=== PATIENT | female | born 1960 | race Caucasian/White ===

== ENCOUNTER 2020-09-02 13:03 | Emergency (ER) | payer MEDICAID ==
[~2020-09-02] VITALS: Ht 157.5 cm; Wt 87.1 kg
[~2020-09-02 13:03] MED LIST: AMLO5TAB PO; MECL-303 PO
[2020-09-02 13:13] VITALS: BP 146/79
[2020-09-02] MEDS ORDERED: FLUO10CA21 PO (13:18)
[2020-09-02] MEDS ORDERED: METO50TE2 PO (13:18)
[2020-09-02] MEDS ORDERED: ORE25 PO (13:18)
[2020-09-02] MEDS ORDERED: LISI-420 PO (13:18)
[2020-09-02] MEDS ORDERED: ATOR20TA PO (13:18)
--- NOTE | 2020-09-02 13:25 | NUR ---
PATIENT PRESENTS TO ED WITH ABD PAIN X2W . PT STATES THAT SHE WENT TO HER PCP AND WAS PRESCRIBED ATX BUT WAS UNABLE TO FILL THE RX. N/V/D X2W; SKIN IS PINK/WARM/DRY; AAOX4 WITH EVEN AND STEADY GAIT; LUNGS CLEAR BL; HR EVEN AND REGULAR; PT DENIES ANY FEVER, CP, SOB, OR COUGH AT THIS TIME; PATIENT STATES PAIN OF 8/10 AT THIS TIME; VSS; PATIENT POSITIONED FOR COMFORT; HOB ELEVATED; BEDRAILS UP X2; BED DOWN. ER MD MADE AWARE OF PT STATUS.
[2020-09-02] MEDS ORDERED: MORPHINE SULFATE 2 MG/ML SYR IVP ONE (14:10)
[2020-09-02] MEDS ORDERED: NACL 0.9% 1,000 ML IV ONE (14:10)
[2020-09-02] MEDS ORDERED: FAMOTIDINE 20 MG/2 ML VIAL IVP STA (14:10)
[2020-09-02] MEDS ORDERED: ALUMINUM HYD/MAG/SIMETHICONE 30 ML UDC PO STA (14:10)
--- NOTE | 2020-09-02 14:30 | NUR ---
1 LITER NS ORDERED
[2020-09-02 14:37] LABS: BASOPHILS % (AUTO) 0.4 % (0.0-2.0); EOSINOPHILS % (AUTO) 0.1 % (0.0-4.0); HEMATOCRIT 41.7 % (36-48); HEMOGLOBIN 14.6 g/dL (12.0-16.0); LYMPHOCYTES # (AUTO) 1.8 K/uL (2.5-16.5); LYMPHOCYTES % (AUTO) 16.7 % (20.5-51.1); MEAN CORPUSCULAR HEMOGLOBIN 31 pg (27-31); MEAN CORPUSCULAR HGB CONC 35 g/dL (33-37); MONOCYTES # (AUTO) 0.6 K/uL (0.8-1.0); MONOCYTES % (AUTO) 5.6 % (1.7-9.3); NEUTROPHILS # (AUTO) 8.1 K/uL (1.8-7.7); NEUTROPHILS % (AUTO) 77.2 % (42.2-75.2); PLATELET COUNT (AUTO) 269 K/uL (140-450); RED BLOOD CELL COUNT(AUTO) 4.69 MIL/uL (4.20-5.40); RED CELL DISTRIBUTION WIDTH 13.1 % (11.6-13.7); WHITE BLOOD COUNT (AUTO) 10.5 K/uL (4.8-10.8)
--- NOTE | 2020-09-02 14:53 | NUR ---
CONSENT FOR CT ABDOMEN AND PELVIS OBTAINED
[2020-09-02 15:00] LABS: ALBUMIN 3.7 g/dL (3.4-5.0); ANION GAP 14.5 (8-16); CARBON DIOXIDE 28.2 mmol/L (21-32); POTASSIUM 3.7 mmol/L (3.5-5.1); TOTAL BILIRUBIN 0.7 mg/dL (0.0-1.0)
--- NOTE | 2020-09-02 15:45 | NUR ---
TO RADIOLOGY VIA W/C.
--- NOTE | 2020-09-02 16:01 | NUR ---
RETURNED FROM RADIOLOGY
--- NOTE | 2020-09-02 19:05 | NUR ---
Received report from CAMDEN Curry for continuation of care.
[2020-09-02 19:37] VITALS: BP 138/81
--- NOTE | 2020-09-02 19:37 | NUR ---
Patient discharged with v/s stable. Written and verbal after care instructions given and explained. Patient alert, oriented and verbalized understanding of instructions. Ambulatory with steady gait. All questions addressed prior to discharge. ID band removed. Patient advised to follow up with PMD. Rx of RANITIDINE HYDROCHLORIDE & MAALOX given. Patient educated on indication of medication including possible reaction and side effects. Opportunity to ask questions provided and answered.
[2020-09-02 20:42] LABS: APPEARANCE,URINE CLEAR (CLEAR); BILIRUBIN,URINE NEGATIVE (NEGATIVE); BLOOD, URINE NEGATIVE (NEGATIVE); COLOR,URINE YELLOW (YELLOW); LEUKOCYTE ESTERASE ,URINE NEGATIVE (NEGATIVE); NITRITE, URINE NEGATIVE (NEGATIVE); PH,URINE 7.5 (5.0-9.0); UGLUCOSE NEGATIVE (NEGATIVE)
== END 2020-09-02 19:37 | disposition home or self-care (01) ==
LOC: MED 13:03
DX: R10.13 Epigastric pain (principal); G89.29 Other chronic pain; I10 Essential (primary) hypertension; Z88.8 Allergy status to other drugs, medicaments and biological substances; Z79.899 Other long term (current) drug therapy
CPT/HCPCS: 36415; 74177; 80053; 81003; 81025; 82150; 83690; 84703; 85025; 96374; 96375; 99285; J2270; J3490; Q9967

== ENCOUNTER 2020-10-29 15:58 | Emergency (ER) | payer MEDICAID ==
[~2020-10-29] VITALS: Ht 157.5 cm; Wt 87.1 kg
[~2020-10-29 15:58] MED LIST changes: -AMLO5TAB PO; +ATOR20TA PO; +FLUO10CA21 PO; +LISI-420 PO; -MECL-303 PO; +METO50TE2 PO; +ORE25 PO
[2020-10-29 16:55] VITALS: BP 159/85
--- NOTE | 2020-10-29 16:55 | NUR ---
TO TENT AMBULATORY
[2020-10-29] MEDS ORDERED: NACL 0.9% 1,000 ML IV ONE (17:40)
[2020-10-29 18:42] LABS: BASOPHILS # (AUTO) 0.1 K/uL (0.00-0.22); BASOPHILS % (AUTO) 0.5 % (0.0-2.0); EOSINOPHILS % (AUTO) 0.2 % (0.0-4.0); HEMATOCRIT 43.4 % (36-48); HEMOGLOBIN 14.4 g/dL (12.0-16.0); LYMPHOCYTES % (AUTO) 21.9 % (20.5-51.1); MEAN CORPUSCULAR HEMOGLOBIN 30 pg (27-31); MEAN CORPUSCULAR HGB CONC 33 g/dL (33-37); MEAN CORPUSCULAR VOLUME 89.9 fL (80-94); MONOCYTES # (AUTO) 0.9 K/uL (0.8-1.0); MONOCYTES % (AUTO) 6.6 % (1.7-9.3); NEUTROPHILS # (AUTO) 9.7 K/uL (1.8-7.7); NEUTROPHILS % (AUTO) 70.8 % (42.2-75.2); PLATELET COUNT (AUTO) 292 K/uL (140-450); RED BLOOD CELL COUNT(AUTO) 4.83 MIL/uL (4.20-5.40); RED CELL DISTRIBUTION WIDTH 13.1 % (11.6-13.7); WHITE BLOOD COUNT (AUTO) 13.7 K/uL (4.8-10.8)
--- NOTE | 2020-10-29 18:42 | NUR ---
CAMACHO MADE AWARE THAT UNABLE TO GIVE IV MEDS IN LOBBY
--- NOTE | 2020-10-29 19:00 | NUR ---
PT ASSESSMENT COMPLETED BY ERMD NO NURSING INTERVENTIONS NEEDED.
[2020-10-29 19:02] LABS: ALBUMIN 4.1 g/dL (3.4-5.0); CARBON DIOXIDE 29.2 mmol/L (21-32); CREATININE 1.1 mg/dL (0.6-1.3); POTASSIUM 4.2 mmol/L (3.5-5.1); TOTAL BILIRUBIN 0.6 mg/dL (0.0-1.0)
--- NOTE | 2020-10-29 20:13 | NUR ---
PER PT SHE DECLINES NS BOLUS AND WOULD LIKE TO BE DISCHARGED AT THIS TIME. CAMACHO MADE AWARE.
[2020-10-29 20:30] VITALS: BP 145/80
--- NOTE | 2020-10-29 20:30 | NUR ---
Patient discharged with v/s stable. Written and verbal after care instructions given and explained. Patient alert, oriented and verbalized understanding of instructions. Ambulatory with steady gait. All questions addressed prior to discharge. ID band removed. Patient advised to follow up with PMD. Rx of MECLIZINE HYDROCHLORIDE & ZOFRAN ODT given. Patient educated on indication of medication including possible reaction and side effects. Opportunity to ask questions provided and answered.
== END 2020-10-29 20:30 | disposition home or self-care (01) ==
LOC: MED 15:58
DX: R42 Dizziness and giddiness (principal); R53.1 Weakness; R11.0 Nausea
CPT/HCPCS: 36415; 70450; 80053; 84484; 85025; 93005; 99285